=== PATIENT | female | born 1985 | race Caucasian/White ===

== ENCOUNTER 2018-01-01 05:38 | Inpatient (IN) | payer OTHER ==
[~2018-01-01] VITALS: Ht 165.1 cm; Wt 72.7 kg
[~2018-01-01 05:38] MED LIST: FEOSOL325 MG PO; IBUPROFEN800 MG PO; PRENATAL TABLE1 EAC3 PO
[2018-01-01 08:30] VITALS: BP 12/72
[2018-01-01 08:34] VITALS: BP 121/72
[2018-01-01] MEDS ORDERED: LATUDA60 MG PO (09:34)
[2018-01-01] MEDS ORDERED: SEROQUEL100 MG PO (09:35)
[2018-01-01] MEDS ORDERED: LITHOBID300 MG PO (09:35)
[2018-01-01] MEDS ORDERED: KLONOPIN0.5 M1 PO (09:36)
[2018-01-01] MEDS ORDERED: ADDERALL XR 3030 MG PO (09:36)
[2018-01-01 16:13] VITALS: BP 132/74
[2018-01-02 07:38] VITALS: BP 120/61
[2018-01-02 11:39] LABS: THYROTROPIN (TSH) 0.25 MIU/L (0.4-5.5)
[2018-01-02 11:50] LABS: FOLIC ACID (FOLATE) 15.3 NG/ML (5.0-22.0)
[2018-01-02 13:25] LABS: FREE T3 3.8 pg/mL (2.3-4.2)
[2018-01-02 16:09] VITALS: BP 141/81
[2018-01-03 08:01] VITALS: BP 113/68
[2018-01-03] MEDS ORDERED: LITHIUM CARBON450 MG PO (08:58)
[2018-01-03] MEDS ORDERED: VITAMIN D31000 UNI2 PO (08:58)
[2018-01-03] MEDS ORDERED: CLONAZEPAM0.5 MG PO (08:58)
[2018-01-03] MEDS ORDERED: QUETIAPINE FUM200 MG PO (08:58)
[2018-01-03] MEDS ORDERED: LAMICTAL25 MG PO (09:02)
[2018-01-03] MEDS ORDERED: LAMICTAL100 MG PO (09:02)
[2018-01-03 16:08] VITALS: BP 116/84
== END 2018-01-03 16:38 | disposition home or self-care (01) | DRG 885 ==
LOC: 1WEST 05:38 → ENRESERV 05:40 → 1WEST 08:15
PROVIDERS: Psychiatry & Neurology Psychiatry
DX: F31.4 Bipolar disorder, current episode depressed, severe, without psychotic features (principal); F41.9 Anxiety disorder, unspecified; Z79.899 Other long term (current) drug therapy; Z62.810 Personal history of physical and sexual abuse in childhood; Z91.5 Personal history of self-harm
CPT/HCPCS: 82306; 82607; 82746; 84439; 84443; 84481